=== PATIENT | male | born 1990 | race Caucasian/White ===

== ENCOUNTER 2021-02-22 16:16 | Emergency (ER) | payer OTHER ==
[~2021-02-22] VITALS: Ht 185.4 cm; Wt 90.7 kg
== END 2021-02-22 17:53 | disposition home or self-care (01) ==
LOC: ED 16:16
DX: S93.402A Sprain of unspecified ligament of left ankle, initial encounter (principal); X50.1XXA Overexertion from prolonged static or awkward postures, initial encounter; Z87.891 Personal history of nicotine dependence; Z88.0 Allergy status to penicillin
CPT/HCPCS: 73610; 99283-25

== ENCOUNTER 2024-07-15 16:41 | Emergency (ER) | payer OTHER ==
[~2024-07-15] VITALS: Ht 185.4 cm; Wt 89.5 kg
[2024-07-15] MEDS ORDERED: BACITRACIN 0.9 GM 1 PKT PKT TOP ONE (17:15)
[2024-07-15 17:56] VITALS: BP 185/88
== END 2024-07-15 17:56 | disposition other institution, planned readmission (95) ==
LOC: ED 16:41
DX: S50.311A Abrasion of right elbow, initial encounter (principal); W03.XXXA Other fall on same level due to collision with another person, initial encounter; Y93.66 Activity, soccer; Y92.149 Unspecified place in prison as the place of occurrence of the external cause; Z87.891 Personal history of nicotine dependence; Z88.0 Allergy status to penicillin
CPT/HCPCS: 73080; 99283